=== PATIENT | male | born 1990 | race Caucasian/White ===

== ENCOUNTER 2017-02-01 13:15 | Inpatient (IN) | payer OTHER ==
[~2017-02-01] VITALS: Ht 190.5 cm; Wt 129.5 kg
[2017-02-01] MEDS ORDERED: BELLADONNA/PHENOBARBITAL TAB PO STA (14:02)
[2017-02-01] MEDS ORDERED: LIDOCAINE/MYLANTA 40 ML BTL PO STA (14:02)
[2017-02-01] MEDS ORDERED: IBUPROFEN 600 MG TAB PO ONE (14:30)
--- NOTE | 2017-02-01 15:49 | RADRPT ---
PROCEDURE: CT Abdomen and Pelvis without contrast. CLINICAL INDICATION: Abdominal pain. Nausea vomiting and fever. TECHNIQUE: CT scan of the abdomen and pelvis without contrast was performed on a multi-slice CT [facility] without intravenous contrast. Coronal and sagittal reformatted images were obtained from the axial source images. Images were reviewed on a high-resolution PACS workstation. One or more of the following does reduction techniques were used: Automated exposure control; adjustment of the mA an d/or kV according to patient size; use of the aorta of reconstruction technique. The total exam CTD I equals 23.79 mGy and the total exam DLP equals 1006 and 78.5 mGy-cm. COMPARISON: None available. FINDINGS: The lung bases are clear. Heart size is normal, and there is no evidence of pericardial thickening or effusion. The liver, spleen, and pancreas are normal given limitations of a noncontrast CT examination. The g allbladder is normal. The adrenal glands are normal. The kidneys without renal calculus or hydronephrosis. The aorta is of normal caliber. There is no retroperitoneal lymph node enlargment. There is no evidence of large or small bowel obstruction. There is moderate thickening of the cecum . There is moderate pericecal inflammatory change and multiple prominent adjacent mesentery lymph n odes. There is mild thickening of the terminal ileum which may be related to reflux ileitis. There is no other evidence of bowel wall thickening or inflammatory change. A small amount of pelvic free fluid is likely reactive. There is no focal fluid collection. The appendix is not identified, how ever there is no definitive evidence of appendicitis. A normal appendix is identified. No definiti ve cecal diverticulum is seen. No enlarged pelvic sidewall lymph nodes are seen. The bladder is within normal limits. There is a small amount of pelvic free fluid.. The inguinal regions are unremarkable. The bones are intact. There is a 3.8 cm ovoid soft tissue density nodule in the subcutaneous fat of the anterior left lower chest which is inseparable from the skin and likely represents a skin lesio n such as a sebaceous cyst. IMPRESSION: 1. Moderate to marked thickening of the cecum with moderate adjacent inflammatory changes and assoc iated prominent adjacent and mesenteric lymph nodes. There is also mild to moderate thickening and i nflammatory change adjacent to the terminal ileum. Findings likely represent terminal ileitis with reactive thickening of the cecum. The differential diagnosis includes Crohn disease. A cecal mass could also have this appearance, however would be very atypical in a 26-year-old male. Follow-up is recommended as clinically indicated. 2. Small pelvic free fluid, likely reactive. 3. 3.8 cm ovoid soft tissue density in the subcutaneous fat of the anterior left lower chest which is inseparable from the skin and may represent a sebaceous cyst. Correlation with physical exam is recommended. RPTAT: KK .Leoncio Serrato MD, MD Date Time Electronically viewed and signed by .Leoncio Serrato MD, MD on 02/01/2017 15:49 .B/
[2017-02-01] MEDS ORDERED: SOD CHLORIDE 0.9% 1,000 ML IV STA (15:57)
[2017-02-01] MEDS ORDERED: PIPER-TAZO 3.375 GM IV (PMX) 100 ML IVPB STA (15:57)
[2017-02-01 16:28] LABS: ADD SCAN DIFF NO
[2017-02-01 16:31] LABS: ABNORMAL IP MESSAGE 1; BASOPHIL # 0.1 10^3/ul (0.0-0.1); BASOPHILS % 0.5 % (0.0-2.0); EOSINOPHILS # 0.1 10^3/ul (0.0-0.5); EOSINOPHILS % 0.6 % (0.0-7.0); HEMATOCRIT 41.1 % (42.0-52.0); HEMOGLOBIN 13.1 g/dl (14.0-18.0); LYMPHOCYTES # 2.6 10^3/ul (0.8-2.9); LYMPHOCYTES % 18.4 % (15.0-51.0); MEAN CORPUSCULAR HEMOGLOBIN 25.9 pg (29.0-33.0); MEAN CORPUSCULAR HGB CONC 31.9 g/dl (32.0-37.0); MEAN CORPUSCULAR VOLUME 81.2 fl (82.0-101.0); MEAN PLATELET VOLUME 8.4 fl (7.4-10.4); MONOCYTES % 14.6 % (0.0-11.0); NEUTROPHIL # 9.1 10^3/ul (1.6-7.5); NEUTROPHILS % 65.4 % (39.0-77.0); PLATELET COUNT 666 10^3/UL (140-415); RED BLOOD COUNT 5.06 10^6/ul (4.70-6.10); RED CELL DISTRIBUTION WIDTH 14.5 % (11.5-14.5)
[2017-02-01 16:43] LABS: INR 1.1; PROTIME 14.2 Sec (12.2-14.2); PT RATIO 1.1
[2017-02-01 16:45] LABS: ALBUMIN 3.8 g/dl (3.3-4.9)
[2017-02-01 16:46] LABS: POTASSIUM 3.9 mmol/L (3.5-5.1)
[2017-02-01 16:48] LABS: BILIRUBIN,INDIRECT 0.2 mg/dl (0-1.1); BILIRUBIN,TOTAL 0.2 mg/dl (0.2-1.3); CREATININE 0.73 mg/dl (0.61-1.24)
[2017-02-01 16:49] LABS: ALBUMIN/GLOBULIN RATIO 0.84; CALCIUM 8.9 mg/dl (8.4-10.2); TOTAL PROTEIN 8.3 g/dl (6.1-8.1)
[2017-02-01] MEDS ORDERED: morphine 4 MG/ML VIAL IV STA (17:07)
[2017-02-01] MEDS ORDERED: ONDANSETRON 4 MG INJ IV STA (17:07)
--- NOTE | 2017-02-01 17:10 | ERA ---
ER Documentation Chief Complaint Date/Time DATE: 02/01/17 TIME: 17:02 Chief Complaint gen abd pain and nausea and vomiting for the past month. HPI 26-year-old man complains of 4-5 episodes of diarrhea daily for the last 1 week. Mom states she has had symptoms including abdominal pain for 1 month old over the last week it is gotten worse. Patient has had tactile fevers at home. Mom who is also at the bedside states 4 months ago he had similar symptoms which lasted for a week and resolved spontaneously, and generally speaking he has had diarrhea on a regular basis for about 10 years. He has had no recent weight loss, no recent antibiotic use, no blood per rectum or mucus, no vomiting , no chest pain or shortness of breath. He has had no previous workups. ROS All systems reviewed and are negative except as per history of present illness. Allergies Allergies: Coded Allergies: No Known Allergy (Unverified , 02/01/17) PMhx/Soc Medical and Surgical Hx: pt denies Medical Hx, pt denies Surgical Hx Smoking Status: Never smoker FmHx Family History: No diabetes Physical Exam Vitals Vital Signs Date Time Temp Pulse Resp B/P Pulse Ox O2 Delivery O2 Flow Rate FiO2 02/01/17 13:29 99.0 105 20 140/80 98 Physical Exam GENERAL: Well-developed, well-nourished, in moderate pain, febrile HEENT: Moist mucous membranes, pink conjunctiva, no cervical spine tenderness or step-off deformities, no goiter, no jaundice or icterus, extraocular movements intact without pain. No submandibular induration, and no pharyngeal erythema NEURO: Alert and oriented 3, cranial nerves II through XII intact bilaterally, pupils equal round reactive to light, no focal deficits or facial asymmetry, sensation intact distally Strength 5/5 in upper and lower extremities bilaterally CARDIAC: Tachycardic and regular, no murmurs rubs or gallops LUNGS: Clear bilaterally no wheezing crackles or stridor ABDOMEN: Voluntary guarding, diffusely tender, no rigidity or rebound SKIN: Warm and dry to touch, no abrasions, contusions, or hematomas, no lacerations, no ecchymosis, no target lesions, and without ulcers EXTREMITIES: No clubbing cyanosis or edema, calves are bilaterally symmetrical, no Homans sign, no popliteal cord sign. Distal pulses equal and bilateral PSYCH: Normal affect without agitation or irritability Result Diagram: 02/01/17 1618 02/01/17 1618 Results 24 hrs Laboratory Tests Test 02/01/17 16:18 White Blood Count 14.010^3/ul Red Blood Count 5.0610^6/ul Hemoglobin 13.1g/dl Hematocrit 41.1% Mean Corpuscular Volume 81.2fl Mean Corpuscular Hemoglobin 25.9pg Mean Corpuscular Hemoglobin Concent 31.9g/dl Red Cell Distribution Width 14.5% Platelet Count 51595^3/UL Mean Platelet Volume 8.4fl Neutrophils % 65.4% Lymphocytes % 18.4% Monocytes % 14.6% Eosinophils % 0.6% Basophils % 0.5% Nucleated Red Blood Cells % 0.0/100WBC Neutrophils # 9.110^3/ul Lymphocytes # 2.610^3/ul Monocytes # 2.010^3/ul Eosinophils # 0.110^3/ul Basophils # 0.110^3/ul Nucleated Red Blood Cells # 0.010^3/ul Prothrombin Time 14.2Sec Prothrombin Time Ratio 1.1 INR International Normalized Ratio 1.10 Sodium Level 136mmol/L Potassium Level 3.9mmol/L Chloride Level 102mmol/L Carbon Dioxide Level 24mmol/L Anion Gap 14 Blood Urea Nitrogen 10mg/dl Creatinine 0.73mg/dl Glucose Level 97mg/dl Calcium Level 8.9mg/dl Total Bilirubin 0.2mg/dl Direct Bilirubin 0.00mg/dl Indirect Bilirubin 0.2mg/dl Aspartate Amino Transf (AST/SGOT) 17IU/L Alanine Aminotransferase (ALT/SGPT) 20IU/L Alkaline Phosphatase 90IU/L Total Protein 8.3g/dl Albumin 3.8g/dl Globulin 4.50g/dl Albumin/Globulin Ratio 0.84 Lipase 41U/L Current Medications Medications (Trade) Dose Ordered Sig/Marcello Route PRN Reason Start Time Stop Time Status Last Admin Dose Admin Miscellaneous Medication (Gi Cocktail (2)) 40 ml ONCE STAT PO 02/01/17 14:02 02/01/17 14:10 DC 02/01/17 14:13 Belladonna/ Phenobarbital () 2 tab ONCE STAT PO 02/01/17 14:02 02/01/17 14:10 DC 02/01/17 14:13 Ibuprofen 600 mg 600 mg ONCE ONCE PO 02/01/17 14:30 02/01/17 14:31 DC 02/01/17 14:13 Sodium Chloride 1,000 ml @ 1,000 mls/hr Q1H STAT IV 02/01/17 15:57 02/01/17 16:56 DC 02/01/17 16:17 Piperacillin Sod/ Tazobactam Sod (Zosyn 3.375gm/ 100 ml (Pmx)) 100 ml @ 200 mls/hr ONCE STAT IVPB 02/01/17 15:57 02/01/17 16:26 DC 02/01/17 16:17 Procedures/MDM IV line was established patient was placed on front desk monitor rhythm strip revealed a sinus tachycardia at 110 bpm with upright P and T waves. Patient was febrile. I administered 1 L of normal saline intravenously, ibuprofen 600 mg p.o., and a GI cocktail 50 cc p.o. with good effect. CT scan of abdomen and pelvis revealed thickening of the cecum and inflammatory changes concerning for inflammatory bowel disease. Please refer to radiologist dictation for full report. I administered Zosyn 3.375 g IV, morphine 4 mg IV, Zofran 4 mg IV with good effect. CBC reveals a leukocytosis of 14, electrolytes unremarkable, liver function tests are normal, coagulation profile was normal. I obtain surgical consultation given the patient's recent symptoms and CT scan findings, Dr. Jolly agreed to consult the patient Patient will be admitted to [facility] for continued medical management. Departure Diagnosis: Primary Impression: Inflammatory bowel disease Additional Impression: Infectious colitis Condition: EMIL Fish MD Feb 01, 2017 17:10
[2017-02-01] MEDS ORDERED: ALBU18HF INHALATION (19:04)
[2017-02-01 20:08] VITALS: TEMP 97.7
--- NOTE | 2017-02-01 20:37 | CONS ---
Date/Time of Note Date/Time of Note DATE: 02/01/17 TIME: 20:31 Assessment/Plan Assessment/Plan Chief Complaint/Hosp Course 26-year-old male with abdominal pain and diarrhea for the past month * Differential diagnosis includes: Terminal ileitis, inflammatory bowel disease , cecal diverticulitis, etc. Chronic perforated appendicitis is less likely. * Recommend broad-spectrum intravenous antibiotics, IV fluid hydration, pain control as needed * Will send off inflammatory bowel panel * Recommend GI consult Further recommendations will be made based on patient's clinical course Problems: Consultation Date/Type/Reason Admit Date/Time Date of Consultation: Feb 01, 2017 Type of Consultation: GENERAL SURGERY Reason for Consultation Abdominal pain Hx of Present Illness The patient is a 26-year-old male with no significant reported past medical history of present the emergency room complaining of abdominal pain. He describes the pain as being located in the left upper quadrant and periumbilical region. It has been associated with diarrhea. He denies any blood in the stool. He states that the pain is been going on over the past month. There is been no nausea or vomiting. There has been no weight loss. Apparently the patient had similar symptoms proximally 4 months ago which resolved on its own after a week. A 14 point review systems was conducted and was negative except for that which is mentioned in history of present illness Past Medical History Medical History: no pertinent history Past Surgical History Past Surgical Hx: no surgical history Family History Significant Family History: no pertinent family hx Social History Smoking Status: Never smoker Exam/Review of Systems Vital Signs Vitals Vital Signs Date Time Temp Pulse Resp B/P Pulse Ox O2 Delivery O2 Flow Rate FiO2 02/01/17 20:08 97.7 79 20 105/67 100 Room Air Exam GENERAL: Awake, alert, oriented 3. No acute distress. SKIN: No jaundice. HEENT: PERRLA, EOMI, No Scleral Icterus NECK: Supple without JVD CARDIOVASCULAR: S1S2, regular rate and rhythm. No murmurs appreciated. RESPIRATORY: Clear to auscultation bilaterally. ABDOMEN: Soft, bowel sounds present but slightly diminished, nondistended, there is mild left quadrant tenderness to palpation without rebound or guarding. There is no right lower quadrant tenderness to palpation. There is no evidence of diffuse peritonitis. EXTREMITIES: Free range of motion 4. No cyanosis, edema, or clubbing. NEUROLOGIC: Cranial nerves II-XII are intact. Sensation is intact grossly. Results Result Diagram: 02/01/17 1618 02/01/17 1618 Results 24 hrs Laboratory Tests Test 02/01/17 16:18 White Blood Count 14.0 H Red Blood Count 5.06 Hemoglobin 13.1 L Hematocrit 41.1 L Mean Corpuscular Volume 81.2 L Mean Corpuscular Hemoglobin 25.9 L Mean Corpuscular Hemoglobin Concent 31.9 L Red Cell Distribution Width 14.5 Platelet Count 666 H Mean Platelet Volume 8.4 Neutrophils % 65.4 Lymphocytes % 18.4 Monocytes % 14.6 H Eosinophils % 0.6 Basophils % 0.5 Nucleated Red Blood Cells % 0.0 Neutrophils # 9.1 H Lymphocytes # 2.6 Monocytes # 2.0 H Eosinophils # 0.1 Basophils # 0.1 Nucleated Red Blood Cells # 0.0 Prothrombin Time 14.2 Prothrombin Time Ratio 1.1 INR International Normalized Ratio 1.10 Sodium Level 136 Potassium Level 3.9 Chloride Level 102 Carbon Dioxide Level 24 Anion Gap 14 Blood Urea Nitrogen 10 Creatinine 0.73 Glucose Level 97 Calcium Level 8.9 Total Bilirubin 0.2 Direct Bilirubin 0.00 Indirect Bilirubin 0.2 Aspartate Amino Transf (AST/SGOT) 17 Alanine Aminotransferase (ALT/SGPT) 20 Alkaline Phosphatase 90 Total Protein 8.3 H Albumin 3.8 Globulin 4.50 H Albumin/Globulin Ratio 0.84 Lipase 41 Procedures Procedures PROCEDURE: CT Abdomen and Pelvis without contrast. CLINICAL INDICATION: Abdominal pain. Nausea vomiting and fever. TECHNIQUE: CT scan of the abdomen and pelvis without contrast was performed on a multi-slice CT scanner without intravenous contrast. Coronal and sagittal reformatted images were obtained from the axial source images. Images were reviewed on a high-resolution PACS workstation. One or more of the following does reduction techniques were used: Automated exposure control; adjustment of the mA and/or kV according to patient size; use of the aorta of reconstruction technique. The total exam CTDI equals 23.79 mGy and the total exam DLP equals 1006 and 78.5 mGy-cm. COMPARISON: None available. FINDINGS: The lung bases are clear. Heart size is normal, and there is no evidence of pericardial thickening or effusion. The liver, spleen, and pancreas are normal given limitations of a noncontrast CT examination. The gallbladder is normal. The adrenal glands are normal. The kidneys without renal calculus or hydronephrosis. The aorta is of normal caliber. There is no retroperitoneal lymph node enlargment. There is no evidence of large or small bowel obstruction. There is moderate thickening of the cecum. There is moderate pericecal inflammatory change and multiple prominent adjacent mesentery lymph nodes. There is mild thickening of the terminal ileum which may be related to reflux ileitis. There is no other evidence of bowel wall thickening or inflammatory change. A small amount of pelvic free fluid is likely reactive. There is no focal fluid collection. The appendix is not identified, however there is no definitive evidence of appendicitis. A normal appendix is identified. No definitive cecal diverticulum is seen. No enlarged pelvic sidewall lymph nodes are seen. The bladder is within normal limits. There is a small amount of pelvic free fluid.. The inguinal regions are unremarkable. The bones are intact. There is a 3.8 cm ovoid soft tissue density nodule in the subcutaneous fat of the anterior left lower chest which is inseparable from the skin and likely represents a skin lesion such as a sebaceous cyst. IMPRESSION: 1. Moderate to marked thickening of the cecum with moderate adjacent inflammatory changes and associated prominent adjacent and mesenteric lymph nodes. There is also mild to moderate thickening and inflammatory change adjacent to the terminal ileum. Findings likely represent terminal ileitis with reactive thickening of the cecum. The differential diagnosis includes Crohn disease. A cecal mass could also have this appearance, however would be very atypical in a 26-year-old male. Follow-up is recommended as clinically indicated. 2. Small pelvic free fluid, likely reactive. 3. 3.8 cm ovoid soft tissue density in the subcutaneous fat of the anterior left lower chest which is inseparable from the skin and may represent a sebaceous cyst. Correlation with physical exam is recommended. RPTAT: KK .Leoncio Serrato MD, MD Date Time Electronically viewed and signed by .Leoncio Serrato MD, MD on 2016 15:49 .B/ CC: EMIL PACHECO MD,JOSHUA Meza MD Feb 01, 2017 20:37
[2017-02-01 21:00] VITALS: Ht 190.5 cm; Wt 129.5 kg
[2017-02-01 21:01] VITALS: BP 127/64; RESP 16
[2017-02-01] MEDS ORDERED: ZOLPIDEM 5 MG TAB PO PRN (22:30)
[2017-02-01] MEDS: metroNIDAZOLE 500 MG TAB PO SCH (22:38)
[2017-02-01] MEDS ORDERED: LEVOFLOXACIN 500 MG TAB PO SCH (23:00)
--- NOTE | 2017-02-02 04:32 | HP ---
DATE OF ADMISSION: 02/01/2017 CHIEF COMPLAINT: "I have had diarrhea and abdominal pain for about 2 weeks." HISTORY OF PRESENT ILLNESS: The patient is a very pleasant, healthy, 26-year-old gentleman with no past medical history and taking no medications who was in his usual state of health until [facility] 2 weeks ago. He presented with intermittent diarrhea and abdominal pain. The watery brown stoo ls were occurring approximately 4 times a day. He went to a different emergency department and said "they did not do anything for me." He presented to [facility] ER today with the aforement ioned symptoms, and his workup revealed a white count of 14,000, and his CT scan revealed moderate t o marked thickening of the cecum with moderate adjacent inflammatory changes and associated prominen t adjacent and mesenteric lymph nodes. There is also mild to moderate thickening and inflammatory c hange adjacent to the terminal ileum. These findings represent terminal ileitis with reactive thick ening of the cecum. The patient denies any sick contacts, fever, nausea, vomiting. This is the fir st time he has had this illness and symptoms. He has not had diarrhea like this or abdominal pain a t all in the past. He denies eating any different foods or undercooked foods in the last few weeks as well. The patient was started on Zosyn and IV fluids in the emergency department and admitted to the medic al floor for further evaluation and treatment. ALLERGIES: NO KNOWN DRUG ALLERGIES. MEDICATIONS: Albuterol inhaler p.r.n. PAST SURGICAL HISTORY: None. SOCIAL HISTORY: The patient denies any tobacco or alcohol use. He lives in [place] with family members. 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 FAMILY HISTORY: The patient's mother has cancer, but he does not know what type. She is alive, how ever. His father has diabetes. REVIEW OF SYSTEMS: Essentially negative except as stated in history of present illness. PHYSICAL EXAMINATION: VITAL SIGNS: Temperature is 98.1, blood pressure 127/64, pulse rate of 86, respiratory rate 16, oxy gen saturation 98% on room air. HEENT: Normocephalic, atraumatic. His extraocular movements are intact. Pupils are equal, round, react to light and accommodations. Oropharynx is clear. NECK: No JVD was noted. No thyromegaly was noted. CARDIOVASCULAR: Regular rate and rhythm without appreciable murmurs, rubs, or gallops. LUNGS: Lungs were clear to auscultation bilaterally without rales, rhonchi, or crackles. ABDOMEN: Soft, nontender, nondistended with normoactive bowel sounds present in all 4 quadrants. EXTREMITIES: No clubbing, cyanosis, or edema. LABORATORIES AND TESTS: His white count is 14, hemoglobin 13.1, hematocrit 41.1, platelet count of 666,000 with 14.6% monocytes. His PT is 14.2, INR of 1.1. Sodium 136, potassium 3.9, chloride 102, bicarbonate 24, BUN 10, creatinine 0.73, glucose 97, calcium 8.9, total bilirubin 0.2, AST 17, ALT 20, alkaline phosphatase 90, total protein 8.3, albumin 3.8, globulin elevated at 4.5, lipase 41. IMPRESSION AND PLAN: The patient is a pleasant 26-year-old male who is basically healthy. [facility] with abdominal pain and intermittent diarrhea for approximately 2 weeks. He had 4 diarrheal epi sodes a day. They are watery and brown. No blood was noted. A CT scan of the abdomen was suspicio us for terminal ileitis. The differential diagnosis does include Crohn's disease. Infectious etiol ogy cannot be ruled out as well. The patient was started on Zosyn and continued on Levaquin and Fla gyl. Dr. Garza has been consulted, and he will evaluate the patient tomorrow. Additional laborato ry testing was ordered which includes an ANCA panel, MPO, and PR3 antibody as well as a C-reactive p rotein. The patient will also get liver profile, CBC, and other general tests. At this point, he i s doing well and not having any abdominal pain or diarrhea. For this reason, he will be monitored o vernight, and we will await Dr. Garza's recommendations. As stated above, he will continue on Leva ailyn and Flagyl and further treatment recommendations to be made based on the patient's progress. Dictated By: NANDINI JOHNSON/DANNI Conf#: [id number] DID#: [id number]
[2017-02-02 05:38] LABS: ADD SCAN DIFF NO
[2017-02-02 05:44] LABS: BASOPHIL # 0.1 10^3/ul (0.0-0.1); BASOPHILS % 0.4 % (0.0-2.0); EOSINOPHILS # 0.1 10^3/ul (0.0-0.5); EOSINOPHILS % 0.9 % (0.0-7.0); HEMATOCRIT 38.6 % (42.0-52.0); HEMOGLOBIN 11.9 g/dl (14.0-18.0); LYMPHOCYTES # 2.1 10^3/ul (0.8-2.9); LYMPHOCYTES % 17.1 % (15.0-51.0); MEAN CORPUSCULAR HEMOGLOBIN 25.6 pg (29.0-33.0); MEAN CORPUSCULAR HGB CONC 30.8 g/dl (32.0-37.0); MEAN CORPUSCULAR VOLUME 83.2 fl (82.0-101.0); MEAN PLATELET VOLUME 8.5 fl (7.4-10.4); MONOCYTE # 1.1 10^3/ul (0.3-0.9); MONOCYTES % 8.9 % (0.0-11.0); NEUTROPHIL # 8.8 10^3/ul (1.6-7.5); NEUTROPHILS % 72.2 % (39.0-77.0); PLATELET COUNT 584 10^3/UL (140-415); RED BLOOD COUNT 4.64 10^6/ul (4.70-6.10); RED CELL DISTRIBUTION WIDTH 14.7 % (11.5-14.5); WHITE BLOOD COUNT 12.2 10^3/ul (4.8-10.8)
[2017-02-02 05:55] LABS: POTASSIUM 4.3 mmol/L (3.5-5.1)
[2017-02-02 05:58] LABS: CREATININE 0.61 mg/dl (0.61-1.24)
[2017-02-02 05:59] LABS: CALCIUM 8.7 mg/dl (8.4-10.2); CHOL/HDL RATIO 2.8 RATIO
[2017-02-02] MEDS: metroNIDAZOLE 500 MG TAB PO SCH ×3 (06:08→22:47)
[2017-02-02] MEDS: PANTOPRAZOLE (EC) 40 MG TAB PO SCH (06:09)
[2017-02-02 07:00] VITALS: BP 131/60; RESP 18
[2017-02-02 09:04] LABS: ALBUMIN 3.3 g/dl (3.3-4.9)
[2017-02-02 09:07] LABS: BILIRUBIN,INDIRECT 0.3 mg/dl (0-1.1); BILIRUBIN,TOTAL 0.3 mg/dl (0.2-1.3); TOTAL PROTEIN 7.4 g/dl (6.1-8.1)
[2017-02-02] MEDS ORDERED: morphine 2 MG INJ IV PRN (10:00)
[2017-02-02] MEDS ORDERED: ONDANSETRON 4 MG INJ IV PRN (10:00)
[2017-02-02] MEDS ORDERED: ACETAMINOPHEN 325 MG TAB PO PRN (10:00)
[2017-02-02] MEDS ORDERED: NACL 0.9% 3 ML SYG IV SCH (10:00)
--- NOTE | 2017-02-02 10:03 | PN ---
Date/Time of Note Date/Time of Note DATE: 02/02/17 TIME: 09:48 Assessment/Plan VTE Prophylaxis VTE Prophylaxis Intervention: SCD's Lines/Catheters IV Catheter Type [facility]from [facility]): Saline Lock Assessment/Plan Assessment/Plan 26-year-old male with: 1. Abdominal pain and intermittent diarrhea for approximately [address] scan of the abdomen suspicious for terminal ileitis. CRP up, ? Crohn's disease, r/o infectious etiology. Stool studies pending. On Clears D/c Zosyn and agree with Levaquin and Flagyl. Dr. Garza has been consulted, ANCA panel, MPO, and PR3 antibody pending . Prophylaxis: Protonix for GI ppx and SCDs for DVT ppx Disposition: GI eval today, Abx, stool studies and IVF. Subjective 24 Hr Interval Summary Free Text/Dictation Patient remains stable No complaints today and still with diarrhea Stool studies pending, GI consult pending for Magdalena this weekend On Levaquin and Flagyl Exam/Review of Systems Vital Signs Vitals Vital Signs Date Time Temp Pulse Resp B/P Pulse Ox O2 Delivery O2 Flow Rate FiO2 02/02/17 07:00 98.0 98 18 131/60 98 02/01/17 20:08 Room Air Exam Constitutional: alert, obese, oriented, well developed Respiratory: clear to auscultation, normal air movement Cardiovascular: nl pulses, regular rate and rhythm Gastrointestinal: non-tender, soft Musculoskeletal: nl extremities to inspection Neurological: BOBBIN FIXER II-XII intact, nl mental status, nl speech, nl strength Results Result Diagram: 02/02/17 0526 02/02/17 0526 Results 24 hrs Laboratory Tests Test 02/01/17 16:18 02/02/17 05:26 02/02/17 07:30 White Blood Count 14.0 H 12.2 H Red Blood Count 5.06 4.64 L Hemoglobin 13.1 L 11.9 L Hematocrit 41.1 L 38.6 L Mean Corpuscular Volume 81.2 L 83.2 Mean Corpuscular Hemoglobin 25.9 L 25.6 L Mean Corpuscular Hemoglobin Concent 31.9 L 30.8 L Red Cell Distribution Width 14.5 14.7 H Platelet Count 666 H 584 H Mean Platelet Volume 8.4 8.5 Neutrophils % 65.4 72.2 Lymphocytes % 18.4 17.1 Monocytes % 14.6 H 8.9 Eosinophils % 0.6 0.9 Basophils % 0.5 0.4 Nucleated Red Blood Cells % 0.0 0.0 Neutrophils # 9.1 H 8.8 H Lymphocytes # 2.6 2.1 Monocytes # 2.0 H 1.1 H Eosinophils # 0.1 0.1 Basophils # 0.1 0.1 Nucleated Red Blood Cells # 0.0 0.0 Prothrombin Time 14.2 Prothrombin Time Ratio 1.1 INR International Normalized Ratio 1.10 Sodium Level 136 139 Potassium Level 3.9 4.3 Chloride Level 102 105 Carbon Dioxide Level 24 27 Anion Gap 14 11 Blood Urea Nitrogen 10 8 Creatinine 0.73 0.61 Glucose Level 97 102 Calcium Level 8.9 8.7 Total Bilirubin 0.2 0.3 Direct Bilirubin 0.00 0.00 Indirect Bilirubin 0.2 0.3 Aspartate Amino Transf (AST/SGOT) 17 23 Alanine Aminotransferase (ALT/SGPT) 20 21 Alkaline Phosphatase 90 74 Total Protein 8.3 H 7.4 Albumin 3.8 3.3 Globulin 4.50 H Albumin/Globulin Ratio 0.84 Lipase 41 Triglycerides Level 87 Cholesterol Level 102 LDL Cholesterol, Calculated 49 HDL Cholesterol 36 Cholesterol/HDL Ratio 2.8 C-Reactive Protein 12.5 H Medications Medications Current Medications Levofloxacin (Levaquin) 500 mg Q24H PO Last administered on 02/01/17 22:38; Admin Dose 500 MG; Start 02/01/17 at 23:00 Metronidazole (Flagyl) 500 mg Q8 PO Last administered on 02/02/17 06:08; Admin Dose 500 MG; Start 02/01/17 at 22:30 Pantoprazole (Protonix Tab) 40 mg DAILY@06 PO Last administered on 02/02/17 06 :09; Admin Dose 40 MG; Start 02/02/17 at 06:00 AARON VEE Feb 02, 2017 09:58
--- NOTE | 2017-02-02 10:52 | CONS ---
Date/Time of Note Date/Time of Note DATE: 02/02/17 TIME: 10:51 Assessment/Plan Assessment/Plan Additional Assessment/Plan Chronic diarrhea Evaluate infectious process vs IBD Review IBD serology and hepatitis A Monitor H&H every 8 hours, transfuse 2 units for hemoglobin less than 7.5 C difficle stool test Colonoscopy i tomorrow, pt advised of R/B/A to procedure and provide informed consent to proceed Bowel Prep CT abdomen: Moderate to marked thickening of the cecum with moderate adjacent inflammatory changes and associated prominent adjacent and mesenteric lymph nodes. There is also mild to moderate thickening and inflammatory change adjacent to the terminal ileum. Findings likely represent terminal ileitis with reactive thickening of the cecum. The differential diagnosis includes Crohn disease. A cecal mass could also have this appearance, however would be very atypical in a 26-year-old male. Follow-up is recommended as clinically indicated. Asthma Management per Primary Obesity Management per Primary Further recommendations depend on clinical course Patient seen in collaboration with Dr. Garza Consultation Date/Type/Reason Admit Date/Time Type of Consultation: Gastroenterology Reason for Consultation Chronic diarrhea Hx of Present Illness Mr.Julio Phillips is a 26-year-old male that presented to the emergency room yesterday secondary to complaints of chronic diarrhea for the last 2 weeks and left upper quadrant abdominal pain. Patient states after 4 episodes of nonbloody loose stools for the last 2 weeks. Patient states left abdominal pain comes and goes and is sharp and lasts for up to 2 minutes. Patient denies alleviating or aggravating factors. Patient denies fever, chills, nausea, vomiting, sick contacts, travel outside the [place], new medications. Patient denies family history of inflammatory bowel disease or colon cancer. Patient has PMH of obesity and well-controlled asthma. At bedside, risks/benefits/ alternatives of procedure were explained to patient and patient provides informed consent to proceed. Negative unless noted in HPI Past Medical History Medical History: no pertinent history Past Surgical History Past Surgical Hx: no surgical history Social History Smoking Status: Never smoker Exam/Review of Systems Vital Signs Vitals Vital Signs Date Time Temp Pulse Resp B/P Pulse Ox O2 Delivery O2 Flow Rate FiO2 02/02/17 07:00 98.0 98 18 131/60 98 02/01/17 20:08 Room Air Exam Constitutional: alert, oriented, well developed Psych: nl mood/affect Head: normocephalic Eyes: EOMI, nl conjunctiva, nl lids ENMT: nl external ears & nose, nl lips & teeth, nl nasal mucosa & septum Respiratory: clear to auscultation, normal air movement Cardiovascular: regular rate and rhythm Gastrointestinal: soft, left upper quadrant tenderness Musculoskeletal: nl extremities to inspection Neurological: BRUSH OR BROOM CUTTER II-XII intact Results Result Diagram: 02/02/17 0526 02/02/17 0526 Results 24 hrs Laboratory Tests Test 02/01/17 16:18 02/02/17 05:26 02/02/17 07:30 White Blood Count 14.0 H 12.2 H Red Blood Count 5.06 4.64 L Hemoglobin 13.1 L 11.9 L Hematocrit 41.1 L 38.6 L Mean Corpuscular Volume 81.2 L 83.2 Mean Corpuscular Hemoglobin 25.9 L 25.6 L Mean Corpuscular Hemoglobin Concent 31.9 L 30.8 L Red Cell Distribution Width 14.5 14.7 H Platelet Count 666 H 584 H Mean Platelet Volume 8.4 8.5 Neutrophils % 65.4 72.2 Lymphocytes % 18.4 17.1 Monocytes % 14.6 H 8.9 Eosinophils % 0.6 0.9 Basophils % 0.5 0.4 Nucleated Red Blood Cells % 0.0 0.0 Neutrophils # 9.1 H 8.8 H Lymphocytes # 2.6 2.1 Monocytes # 2.0 H 1.1 H Eosinophils # 0.1 0.1 Basophils # 0.1 0.1 Nucleated Red Blood Cells # 0.0 0.0 Prothrombin Time 14.2 Prothrombin Time Ratio 1.1 INR International Normalized Ratio 1.10 Sodium Level 136 139 Potassium Level 3.9 4.3 Chloride Level 102 105 Carbon Dioxide Level 24 27 Anion Gap 14 11 Blood Urea Nitrogen 10 8 Creatinine 0.73 0.61 Glucose Level 97 102 Calcium Level 8.9 8.7 Total Bilirubin 0.2 0.3 Direct Bilirubin 0.00 0.00 Indirect Bilirubin 0.2 0.3 Aspartate Amino Transf (AST/SGOT) 17 23 Alanine Aminotransferase (ALT/SGPT) 20 21 Alkaline Phosphatase 90 74 Total Protein 8.3 H 7.4 Albumin 3.8 3.3 Globulin 4.50 H Albumin/Globulin Ratio 0.84 Lipase 41 Triglycerides Level 87 Cholesterol Level 102 LDL Cholesterol, Calculated 49 HDL Cholesterol 36 Cholesterol/HDL Ratio 2.8 C-Reactive Protein 12.5 H Medications Medications Current Medications Metronidazole (Flagyl) 500 mg Q8 PO Last administered on 02/02/17 06:08; Admin Dose 500 MG; Start 02/01/17 at 22:30 Pantoprazole 40 mg 40 mg DAILY@06 PO Last administered on 02/02/17 06:09; Admin Dose 40 MG; Start 02/02/17 at 06:00 Levofloxacin/ Dextrose 100 ml @ 100 mls/hr Q24H IVPB ; Start 02/02/17 at 11:00 Sodium Chloride (NS) 1,000 ml @ 100 mls/hr Q10H IV ; Start 02/02/17 at 10:00 Ondansetron HCl (Zofran Inj) 4 mg Q6H PRN IV NAUSEA AND/OR VOMITING; Start at 10:00 Acetaminophen (Tylenol Tab) 650 mg Q6H PRN PO PAIN LEVEL 1-3 OR FEVER; Start at 10:00 Morphine Sulfate (morphine) 2 mg Q4H PRN IV PAIN; Start 02/02/17 at 10:00 JAY LISA Feb 02, 2017 10:52
[2017-02-02] MEDS: LEVOFLOXACIN 500MG/D5W (PMX) 100 ML IVPB SCH (11:05)
[2017-02-02] MEDS: SOD CHLORIDE 0.9% 1,000 ML IV SCH ×2 (11:08→22:48)
[2017-02-02] MEDS ORDERED: BISACODYL (EC) 5 MG TAB PO ONE ×2 (14:00→18:00)
[2017-02-02] MEDS ORDERED: MAGNESIUM CITRATE 300 ML BTL PO ONE (15:00)
[2017-02-02] MEDS ORDERED: POLYETHYLENE GLYCOL 3350 119 GM POWDER PO ONE ×2 (16:00→18:00)
--- NOTE | 2017-02-02 19:37 | PN ---
Date/Time of Note Date/Time of Note DATE: 02/02/17 TIME: 19:34 Assessment/Plan Lines/Catheters [facility] (from [facility]): Saline Lock Assessment/Plan Assessment/Plan 26-year-old male with abdominal pain and diarrhea for the past month * Differential diagnosis includes: Terminal ileitis, inflammatory bowel disease , cecal diverticulitis, etc. Chronic perforated appendicitis is less likely. * Continue broad-spectrum intravenous antibiotics, IV fluid hydration, pain control as needed * Inflammatory bowel panel pending * Plan is for colonoscopy in AM by GI * No acute surgical issues at this time Subjective 24 Hr Interval Summary Denies abdominal pain. Undergoing bowel prep for colonoscopy. Afebrile. Exam/Review of Systems Vital Signs Vitals Vital Signs Date Time Temp Pulse Resp B/P Pulse Ox O2 Delivery O2 Flow Rate FiO2 02/02/17 07:00 98.0 98 18 131/60 98 02/01/17 20:08 Room Air Exam Free Text/Dictation GENERAL: Awake, alert, oriented 3. No acute distress. CARDIOVASCULAR: S1S2, regular rate and rhythm. No murmurs appreciated. RESPIRATORY: Clear to auscultation bilaterally. ABDOMEN: Soft, bowel sounds present, nondistended, there is minimal left upper quadrant tenderness to deep palpation without rebound or guarding. There is no right lower quadrant tenderness to palpation. There is no evidence of diffuse peritonitis. EXTREMITIES: Free range of motion 4. No cyanosis, edema, or clubbing. Results Result Diagram: 02/02/17 0526 02/02/17 0526 JOSHUA GOULD MD Feb 02, 2017 19:37
[2017-02-02 20:16] VITALS: BP 135/74; RESP 18
[2017-02-03] MEDS: metroNIDAZOLE 500 MG TAB PO SCH ×4 (05:31→21:36)
[2017-02-03] MEDS: PANTOPRAZOLE (EC) 40 MG TAB PO SCH ×2 (05:31→06:33)
[2017-02-03] MEDS: SOD CHLORIDE 0.9% 1,000 ML IV SCH ×2 (06:00→11:30)
[2017-02-03 06:34] LABS: ADD SCAN DIFF NO
[2017-02-03 06:52] LABS: BASOPHIL # 0.1 10^3/ul (0.0-0.1); EOSINOPHILS # 0.1 10^3/ul (0.0-0.5); EOSINOPHILS % 1.8 % (0.0-7.0); HEMATOCRIT 36.5 % (42.0-52.0); HEMOGLOBIN 11.3 g/dl (14.0-18.0); LYMPHOCYTES % 27.7 % (15.0-51.0); MEAN CORPUSCULAR HEMOGLOBIN 25.7 pg (29.0-33.0); MEAN PLATELET VOLUME 8.8 fl (7.4-10.4); MONOCYTE # 0.8 10^3/ul (0.3-0.9); MONOCYTES % 10.7 % (0.0-11.0); NEUTROPHIL # 4.1 10^3/ul (1.6-7.5); NEUTROPHILS % 58.4 % (39.0-77.0); PLATELET COUNT 567 10^3/UL (140-415); RED CELL DISTRIBUTION WIDTH 14.6 % (11.5-14.5); WHITE BLOOD COUNT 7.1 10^3/ul (4.8-10.8)
[2017-02-03 07:11] LABS: INR 1.06; PROTIME 13.8 Sec (12.2-14.2); PT RATIO 1.1
[2017-02-03 07:12] LABS: PARTIAL THROMBOPLASTIN TIME 33.8 Sec (25.0-35.0)
[2017-02-03 07:27] LABS: ALBUMIN 3.3 g/dl (3.3-4.9)
[2017-02-03 07:28] VITALS: BP 135/78; RESP 24
[2017-02-03 07:30] LABS: BILIRUBIN,INDIRECT 0.3 mg/dl (0-1.1); BILIRUBIN,TOTAL 0.3 mg/dl (0.2-1.3); CREATININE 0.63 mg/dl (0.61-1.24)
[2017-02-03 07:31] LABS: ALBUMIN/GLOBULIN RATIO 0.84; CALCIUM 8.7 mg/dl (8.4-10.2); MAGNESIUM 2.4 mg/dl (1.7-2.5); PHOSPHORUS 4.2 mg/dl (2.5-4.9); TOTAL PROTEIN 7.2 g/dl (6.1-8.1)
--- NOTE | 2017-02-03 10:14 | PN ---
Date/Time of Note Date/Time of Note DATE: 02/03/17 TIME: 10:04 Assessment/Plan VTE Prophylaxis VTE Prophylaxis Intervention: SCD's Lines/Catheters IV Catheter Type (from [facility], [place]): Peripheral IV Assessment/Plan Assessment/Plan 26-year-old male with: 1. Abdominal pain and intermittent diarrhea for approximately 2 weeks. S/p bowel prep and awaiting Colonoscopy. Hep A positive CT scan of the abdomen suspicious for terminal ileitis. CRP up, ? Crohn's disease, r/o infectious etiology. C diff negative. Other Stool studies pending. Colonoscopy pending. Continue Levaquin and Flagyl. Dr. Garza following ANCA panel, MPO, and PR3 antibody pending . Prophylaxis: Protonix for GI ppx and SCDs for DVT ppx Disposition: Colonoscopy pending today, continue current Abx and IVF. Subjective 24 Hr Interval Summary Free Text/Dictation Hep A positive Otherwise labs OK Colonoscopy pending today Afebrile, VSS Exam/Review of Systems Vital Signs Vitals Vital Signs Date Time Temp Pulse Resp B/P Pulse Ox O2 Delivery O2 Flow Rate FiO2 02/03/17 07:28 98.0 74 24 135/78 99 02/01/17 20:08 Room Air Intake and Output 02/02/17 02/02/17 02/03/17 15:00 23:00 07:00 Intake Total 1000 ml 600 ml Balance 1000 ml 600 ml Exam Constitutional: alert, oriented, well developed Respiratory: clear to auscultation, normal air movement Cardiovascular: nl pulses, regular rate and rhythm Gastrointestinal: soft, tender (mild TTP diffuse ) Musculoskeletal: nl extremities to inspection Extremities: normal pulses, other (no edema, clubbing or cyanosis ) Neurological: INDUSTRIAL TRAINER II-XII intact, nl mental status, nl speech, nl strength Results Result Diagram: 02/03/1730 02/03/17 0530 Results 24 hrs Laboratory Tests Test 02/02/17 14:00 02/03/17 05:30 Hepatitis A Antibody Total POSITIVE H White Blood Count 7.1 # Red Blood Count 4.40 L Hemoglobin 11.3 L Hematocrit 36.5 L Mean Corpuscular Volume 83.0 Mean Corpuscular Hemoglobin 25.7 L Mean Corpuscular Hemoglobin Concent 31.0 L Red Cell Distribution Width 14.6 H Platelet Count 567 H Mean Platelet Volume 8.8 Neutrophils % 58.4 Lymphocytes % 27.7 Monocytes % 10.7 Eosinophils % 1.8 Basophils % 1.0 Nucleated Red Blood Cells % 0.0 Neutrophils # 4.1 Lymphocytes # 2.0 Monocytes # 0.8 Eosinophils # 0.1 Basophils # 0.1 Nucleated Red Blood Cells # 0.0 Prothrombin Time 13.8 Prothrombin Time Ratio 1.1 INR International Normalized Ratio 1.06 Activated Partial Thromboplast Time 33.8 Sodium Level 138 Potassium Level 4.0 Chloride Level 109 Carbon Dioxide Level 21 Anion Gap 12 Blood Urea Nitrogen 4 L Creatinine 0.63 Glucose Level 90 Calcium Level 8.7 Phosphorus Level 4.2 Magnesium Level 2.4 Total Bilirubin 0.3 Direct Bilirubin 0.00 Indirect Bilirubin 0.3 Aspartate Amino Transf (AST/SGOT) 25 Alanine Aminotransferase (ALT/SGPT) 19 Alkaline Phosphatase 72 Total Protein 7.2 Albumin 3.3 Globulin 3.90 H Albumin/Globulin Ratio 0.84 Medications Medications Current Medications Metronidazole (Flagyl) 500 mg Q8 PO Last administered on 02/03/17 06:49; Admin Dose 500 MG; Start 02/01/17 at 22:30 Pantoprazole 40 mg 40 mg DAILY@06 PO Last administered on 02/03/17 06:33; Admin Dose 40 MG; Start 02/02/17 at 06:00 Levofloxacin/ Dextrose 100 ml @ 100 mls/hr Q24H IVPB Last administered on 02/02 11:05; Admin Dose 100 MLS/HR; Start 02/02/17 at 11:00 Sodium Chloride (NS) 1,000 ml @ 100 mls/hr Q10H IV Last administered on 22:48; Admin Dose 100 MLS/HR; Start 02/02/17 at 10:00 Ondansetron HCl (Zofran Inj) 4 mg Q6H PRN IV NAUSEA AND/OR VOMITING; Start at 10:00 Acetaminophen (Tylenol Tab) 650 mg Q6H PRN PO PAIN LEVEL 1-3 OR FEVER; Start at 10:00 Morphine Sulfate (morphine) 2 mg Q4H PRN IV PAIN; Start 02/02/17 at 10:00 AARON VEE Feb 03, 2017 10:14
[2017-02-03] MEDS: LEVOFLOXACIN 500MG/D5W (PMX) 100 ML IVPB SCH (11:31)
[2017-02-03 14:15] VITALS: BP 143/71; PULSE 96; RESP 16
[2017-02-03 14:29] LABS: MYELOPEROXIDASE ANTIBODY <1.0 AI; PROTEINASE-3 ANTIBODY <1.0 AI
[2017-02-03] MEDS ORDERED: PROPOFOL 40 ML ONE (14:30)
[2017-02-03] MEDS ORDERED: LIDOCAINE 2% (SDV) 5 ML INJ ONE (14:30)
--- NOTE | 2017-02-03 14:30 | OPR ---
Date/Time of Note Date/Time of Note DATE: 02/03/17 TIME: 14:25 Operative Report Free Text/Dictation Impression: 1. ulcerated IC valve 2. strictured entry into the ileum 3. mildly inflamed cecum 4. ascending colon polyp Recommendations: 1. start solumedrol and 6MP for presumed Crohn's disease 2. I sent off stool studies to r/o infectious causes 3. he declined EGD even though it is part of w/u for Crohn's disease to define extent and severity of his Crohn's disease. 4. f/u biopsy results Procedure Date: Feb 03, 2017 Preoperative Diagnosis elevated CRP, diarrhea Operation Performed colonoscopy with biopsies and polypectomy of ascending colon polyp Surgeon: EMIL MCADAMS MD Anesthesia: MAC Anesthesiologist: JAYA CAMACHO MD Estimated Blood Loss: minimal Specimens colon biopsies Complications: None Pt Condition Post Procedure: stable Disposition: PACU Indications chronic diarrhea with elevated inflammatory markers Operative\Procedure Findings 1. ascending colon polyp s/p polypectomy 2. IC valve stricture and ulceration 3. mild cecal inflammation 4. small internal hemorrhoids Procedure Description After time out and informed consent, patient was sedated by Dr. Camacho. After adequate sedation, I performed rectal exam that showed normal rectal tone, no perianal ulcer, erosions, fissures, or fistula. I next inserted an adult EGD scope from the rectum and advanced to the cecum. IC valve was edematous and ulcerated and I could not intubate the TI. I passed biopsy forcept to obtain random ileal biopsies. Cecum appeared erythematous but no jose ulcers. There is a 1.5 cm polyp in the ascending colon s/p polypectomy. Colon was evaluated circumferentially upon withdraw. Random biopsies were taken to r/o IBD and others such as dysplasia. Retroflexion was performed in the rectum revealing small internal hemorrhoids. EMIL MCADAMS MD Feb 03, 2017 14:30
[2017-02-03] MEDS ORDERED: PROPOFOL 20 ML ONE ×2 (14:53)
[2017-02-03] MEDS ORDERED: ONDANSETRON 4 MG INJ IV PRN (15:30)
[2017-02-03 16:01] VITALS: BP 111/64; PULSE 70; RESP 20
[2017-02-03] MEDS: METHYLPREDNISOLONE 40 MG INJ IV SCH ×2 (16:45→21:36)
[2017-02-03 17:00] VITALS: BP 143/71; RESP 22
[2017-02-03 20:36] VITALS: BP 123/66; RESP 20
[2017-02-03] MEDS: MERCAPTOPURINE 50 MG TAB PO SCH (20:55)
[2017-02-04] MEDS: SOD CHLORIDE 0.9% 1,000 ML IV SCH ×3 (02:13→21:47)
[2017-02-04] MEDS: PANTOPRAZOLE (EC) 40 MG TAB PO SCH (05:24)
[2017-02-04] MEDS: METHYLPREDNISOLONE 40 MG INJ IV SCH ×3 (05:24→21:46)
[2017-02-04] MEDS: metroNIDAZOLE 500 MG TAB PO SCH ×3 (05:24→21:47)
[2017-02-04 06:40] LABS: ADD SCAN DIFF NO
[2017-02-04 06:45] LABS: BASOPHILS % 0.1 % (0.0-2.0); HEMATOCRIT 39.2 % (42.0-52.0); HEMOGLOBIN 12.5 g/dl (14.0-18.0); LYMPHOCYTES # 0.8 10^3/ul (0.8-2.9); LYMPHOCYTES % 9.4 % (15.0-51.0); MEAN CORPUSCULAR HEMOGLOBIN 25.9 pg (29.0-33.0); MEAN CORPUSCULAR HGB CONC 31.9 g/dl (32.0-37.0); MEAN CORPUSCULAR VOLUME 81.3 fl (82.0-101.0); MEAN PLATELET VOLUME 8.6 fl (7.4-10.4); MONOCYTE # 0.2 10^3/ul (0.3-0.9); MONOCYTES % 1.9 % (0.0-11.0); NEUTROPHIL # 7.5 10^3/ul (1.6-7.5); NEUTROPHILS % 88.2 % (39.0-77.0); PLATELET COUNT 629 10^3/UL (140-415); RED BLOOD COUNT 4.82 10^6/ul (4.70-6.10); RED CELL DISTRIBUTION WIDTH 14.2 % (11.5-14.5); WHITE BLOOD COUNT 8.5 10^3/ul (4.8-10.8)
[2017-02-04 07:04] LABS: ALBUMIN 3.6 g/dl (3.3-4.9); MAGNESIUM 2.3 mg/dl (1.7-2.5); PHOSPHORUS 3.8 mg/dl (2.5-4.9)
[2017-02-04 07:05] LABS: POTASSIUM 4.4 mmol/L (3.5-5.1)
[2017-02-04 07:07] LABS: ALBUMIN/GLOBULIN RATIO 0.83; BILIRUBIN,INDIRECT 0.2 mg/dl (0-1.1); BILIRUBIN,TOTAL 0.2 mg/dl (0.2-1.3); CREATININE 0.51 mg/dl (0.61-1.24); TOTAL PROTEIN 7.9 g/dl (6.1-8.1)
[2017-02-04 07:08] LABS: CALCIUM 9.1 mg/dl (8.4-10.2)
[2017-02-04 07:20] VITALS: BP 132/75; RESP 20
[2017-02-04] MEDS: MERCAPTOPURINE 50 MG TAB PO SCH (09:17)
--- NOTE | 2017-02-04 10:26 | PN ---
Date/Time of Note Date/Time of Note DATE: 02/04/17 TIME: 10:25 Assessment/Plan VTE Prophylaxis VTE Prophylaxis Intervention: ambulation, SCD's Lines/Catheters IV [facility]ter Type (from [email or web address] Peripheral IV Urinary Cath still in place: No Assessment/Plan Assessment/Plan 26-year-old male with: 1. Abdominal pain and intermittent diarrhea for approximately 2 weeks. S/p Colonoscopy yesterday. CT scan of the abdomen suspicious for terminal ileitis. CRP up, ? Crohn's disease, ANCA panel, MPO, and PR3 al negative, stool c diff and cx negative so far, d/c abx by AM if Ok with GI Pathology pending. Hep A positive Dr. Garza/Dr Cadena following Prophylaxis: Protonix for GI ppx and SCDs for DVT ppx Disposition: Continue current Abx and IVF and f/u final GI recs. Subjective 24 Hr Interval Summary Free Text/Dictation Patient doing well, s/p colonoscopy yesterday No complaints, no abdo pain or diarrhea this AM On clears and well tolerated Also started on Solu Medrol and Mercaptopurine IV per GI Pathology pending Exam/Review of Systems Vital Signs Vitals Vital Signs Date Time Temp Pulse Resp B/P Pulse Ox O2 Delivery O2 Flow Rate FiO2 02/04/17 07:20 97.7 80 20 132/75 99 02/03/17 16:01 Room Air Intake and Output 02/03/17 02/03/17 02/04/17 15:00 23:00 07:00 Intake Total 500 ml 760 ml 1580 ml Balance 500 ml 760 ml 1580 ml Exam Constitutional: alert, obese, oriented, well developed Respiratory: clear to auscultation, normal air movement Cardiovascular: nl pulses, regular rate and rhythm Gastrointestinal: non-tender, soft Musculoskeletal: nl extremities to inspection Extremities: normal pulses, other (no edema, clubbing or cyanosis ) Neurological: PERSONAL LINES APPRAISER II-XII intact, nl mental status, nl speech, nl strength Results Result Diagram: 02/04/17 0629 02/04/17 0629 Results 24 hrs Laboratory Tests Test 02/03/17 21:30 02/04/17 06:29 Stool Occult Blood POSITIVE White Blood Count 8.5 Red Blood Count 4.82 Hemoglobin 12.5 L Hematocrit 39.2 L Mean Corpuscular Volume 81.3 L Mean Corpuscular Hemoglobin 25.9 L Mean Corpuscular Hemoglobin Concent 31.9 L Red Cell Distribution Width 14.2 Platelet Count 629 H Mean Platelet Volume 8.6 Neutrophils % 88.2 H Lymphocytes % 9.4 L Monocytes % 1.9 Eosinophils % 0.0 Basophils % 0.1 Nucleated Red Blood Cells % 0.0 Neutrophils # 7.5 Lymphocytes # 0.8 Monocytes # 0.2 L Eosinophils # 0.0 Basophils # 0.0 Nucleated Red Blood Cells # 0.0 Sodium Level 141 Potassium Level 4.4 Chloride Level 110 Carbon Dioxide Level 22 Anion Gap 13 Blood Urea Nitrogen 3 L Creatinine 0.51 L Glucose Level 137 # Calcium Level 9.1 Phosphorus Level 3.8 Magnesium Level 2.3 Total Bilirubin 0.2 Direct Bilirubin 0.00 Indirect Bilirubin 0.2 Aspartate Amino Transf (AST/SGOT) 18 Alanine Aminotransferase (ALT/SGPT) 25 Alkaline Phosphatase 79 Total Protein 7.9 Albumin 3.6 Globulin 4.30 H Albumin/Globulin Ratio 0.83 Medications Medications Current Medications Metronidazole (Flagyl) 500 mg Q8 PO Last administered on 02/04/17 05:24; Admin Dose 500 MG; Start 02/01/17 at 22:30 Pantoprazole 40 mg 40 mg DAILY@06 PO Last administered on 02/04/17 05:24; Admin Dose 40 MG; Start 02/02/17 at 06:00 Sodium Chloride (NS) 1,000 ml @ 100 mls/hr Q10H IV Last administered on 02:13; Admin Dose 100 MLS/HR; Start 02/02/17 at 10:00 Ondansetron HCl (Zofran Inj) 4 mg Q6H PRN IV NAUSEA AND/OR VOMITING; Start at 10:00 Acetaminophen (Tylenol Tab) 650 mg Q6H PRN PO PAIN LEVEL 1-3 OR FEVER; Start at 10:00 Morphine Sulfate (morphine) 2 mg Q4H PRN IV PAIN; Start 02/02/17 at 10:00 Methylprednisolone Sodium Succinate (Solu-Medrol) 20 mg Q8 IV Last administered on 02/04/17 05:24; Admin Dose 20 MG; Start 02/03/17 at 15:00 Mercaptopurine (Purinethol) 100 mg DAILY PO Last administered on 4/2/17at 09:17 ; Admin Dose 100 MG; Start 02/03/17 at 15:00 Levofloxacin (Levaquin) 500 mg DAILY@06 PO ; Start 02/04/17 at 09:30 AARON VEE Feb 04, 2017 10:26
--- NOTE | 2017-02-04 10:49 | PN ---
Date/Time of Note Date/Time of Note DATE: 02/04/17 TIME: 10:47 Assessment/Plan Lines/Catheters IV Catheter Type (from [facility]): Peripheral IV Toure in Place (from [facility]): No Assessment/Plan Assessment/Plan 26-year-old male with abdominal pain and diarrhea for the past month * Colonoscopy findings likely Crohn's disease * Patient started on steroids * Advance diet as tolerated * Continue management per GI * Will follow as needed Subjective 24 Hr Interval Summary Denies abdominal pain. Tolerating clear liquids. Afebrile. Exam/Review of Systems Vital Signs Vitals Vital Signs Date Time Temp Pulse Resp B/P Pulse Ox O2 Delivery O2 Flow Rate FiO2 02/04/17 07:20 97.7 80 20 132/75 99 02/03/17 16:01 Room Air Intake and Output 02/03/17 02/03/17 02/04/17 15:00 23:00 07:00 Intake Total 500 ml 760 ml 1580 ml Balance 500 ml 760 ml 1580 ml Exam Free Text/Dictation GENERAL: Awake, alert, oriented 3. No acute distress. CARDIOVASCULAR: S1S2, regular rate and rhythm. No murmurs appreciated. RESPIRATORY: Clear to auscultation bilaterally. ABDOMEN: Soft, bowel sounds present, nondistended, nontender to palpation at this time EXTREMITIES: Free range of motion 4. No cyanosis, edema, or clubbing. Results Result Diagram: 02/04/17 0629 02/04/17 0629 JOSHUA GOULD MD Feb 04, 2017 10:49
[2017-02-04] MEDS: LEVOFLOXACIN 500 MG TAB PO SCH (12:21)
--- NOTE | 2017-02-04 13:25 | CONS ---
Date/Time of Note Date/Time of Note DATE: 02/04/17 TIME: 13:20 Assessment/Plan Assessment/Plan Chief Complaint/Hosp Course Impression: 1. likely Crohn's disease, awaiting final biopsy results 2. on immunosuppression for Crohn's disease with mercaptopurine and solumedrol 3. anemia secondary to Crohn's disease Recommendations: 1. f/u biopsy results 2. check CBC and CMP tomorrow to make sure there is no bone marrow suppression and hepatoxicity with mercaptopurine 3. if ESR and CRP reduces tomorrow, ok from GI perspective to discharge patient on prednisone 40 mg po daily to taper by 10 mg per week until off and continued 6MP at 100 mg po daily 4. f/u in Dr. Garza's clinic for further out-pt managements Problems: Consultation Date/Type/Reason Admit Date/Time Feb 01, 2017 at 17:40 Initial Consult Date 02/01/17 Type of Consultation: Gastroenterology 24 HR Interval Summary Free Text/Dictation tolerating po, no n/v, abdominal pain improved Constitutional: improved Exam/Review of Systems Vital Signs Vitals Vital Signs Date Time Temp Pulse Resp B/P Pulse Ox O2 Delivery O2 Flow Rate FiO2 02/04/17 07:20 97.7 80 20 132/75 99 02/03/17 16:01 Room Air Intake and Output 02/03/17 02/03/17 02/04/17 15:00 23:00 07:00 Intake Total 500 ml 760 ml 1580 ml Balance 500 ml 760 ml 1580 ml Exam Constitutional: alert, oriented, well developed Psych: nl mood/affect, no complaints Head: atraumatic, normocephalic Eyes: EOMI, nl conjunctiva, nl lids, nl sclera ENMT: mucosa pink and moist, nl external ears & nose, nl lips & teeth, nl nasal mucosa & septum Neck: non-tender, supple Respiratory: clear to auscultation, normal air movement Cardiovascular: nl pulses, regular rate and rhythm Gastrointestinal: bowel sounds, non-tender, soft Results Result Diagram: 02/04/17 0629 02/04/17 0629 Results 24 hrs Laboratory Tests Test 02/03/17 21:30 02/04/17 06:29 Stool Occult Blood POSITIVE White Blood Count 8.5 Red Blood Count 4.82 Hemoglobin 12.5 L Hematocrit 39.2 L Mean Corpuscular Volume 81.3 L Mean Corpuscular Hemoglobin 25.9 L Mean Corpuscular Hemoglobin Concent 31.9 L Red Cell Distribution Width 14.2 Platelet Count 629 H Mean Platelet Volume 8.6 Neutrophils % 88.2 H Lymphocytes % 9.4 L Monocytes % 1.9 Eosinophils % 0.0 Basophils % 0.1 Nucleated Red Blood Cells % 0.0 Neutrophils # 7.5 Lymphocytes # 0.8 Monocytes # 0.2 L Eosinophils # 0.0 Basophils # 0.0 Nucleated Red Blood Cells # 0.0 Sodium Level 141 Potassium Level 4.4 Chloride Level 110 Carbon Dioxide Level 22 Anion Gap 13 Blood Urea Nitrogen 3 L Creatinine 0.51 L Glucose Level 137 # Calcium Level 9.1 Phosphorus Level 3.8 Magnesium Level 2.3 Total Bilirubin 0.2 Direct Bilirubin 0.00 Indirect Bilirubin 0.2 Aspartate Amino Transf (AST/SGOT) 18 Alanine Aminotransferase (ALT/SGPT) 25 Alkaline Phosphatase 79 Total Protein 7.9 Albumin 3.6 Globulin 4.30 H Albumin/Globulin Ratio 0.83 Medications Medications Current Medications Metronidazole (Flagyl) 500 mg Q8 PO Last administered on 02/04/17 05:24; Admin Dose 500 MG; Start 02/01/17 at 22:30 Pantoprazole 40 mg 40 mg DAILY@06 PO Last administered on 02/04/17 05:24; Admin Dose 40 MG; Start 02/02/17 at 06:00 Sodium Chloride (NS) 1,000 ml @ 100 mls/hr Q10H IV Last administered on 12:25; Admin Dose 100 MLS/HR; Start 02/02/17 at 10:00 Ondansetron HCl (Zofran Inj) 4 mg Q6H PRN IV NAUSEA AND/OR VOMITING; Start at 10:00 Acetaminophen (Tylenol Tab) 650 mg Q6H PRN PO PAIN LEVEL 1-3 OR FEVER; Start at 10:00 Morphine Sulfate (morphine) 2 mg Q4H PRN IV PAIN; Start 02/02/17 at 10:00 Methylprednisolone Sodium Succinate (Solu-Medrol) 20 mg Q8 IV Last administered on 02/04/17 05:24; Admin Dose 20 MG; Start 02/03/17 at 15:00 Mercaptopurine (Purinethol) 100 mg DAILY PO Last administered on 02/04/17 09:17 ; Admin Dose 100 MG; Start 02/03/17 at 15:00 Levofloxacin (Levaquin) 500 mg DAILY@06 PO Last administered on 02/04/17 12:21 ; Admin Dose 500 MG; Start 02/04/17 at 09:30 EMIL MCADAMS MD Feb 04, 2017 13:25
[2017-02-04 19:34] VITALS: BP 130/71; RESP 18
[2017-02-05] MEDS: SOD CHLORIDE 0.9% 1,000 ML IV SCH ×2 (02:46→08:00)
[2017-02-05] MEDS: metroNIDAZOLE 500 MG TAB PO SCH (05:41)
[2017-02-05] MEDS: PANTOPRAZOLE (EC) 40 MG TAB PO SCH (05:41)
[2017-02-05] MEDS: METHYLPREDNISOLONE 40 MG INJ IV SCH (05:41)
[2017-02-05] MEDS: LEVOFLOXACIN 500 MG TAB PO SCH (05:41)
[2017-02-05 06:08] LABS: ADD SCAN DIFF NO
[2017-02-05 06:19] LABS: ABNORMAL IP MESSAGE 1; HEMATOCRIT 38.4 % (42.0-52.0); MEAN CORPUSCULAR HEMOGLOBIN 25.8 pg (29.0-33.0); MEAN CORPUSCULAR HGB CONC 31.3 g/dl (32.0-37.0); MEAN CORPUSCULAR VOLUME 82.6 fl (82.0-101.0); MEAN PLATELET VOLUME 8.5 fl (7.4-10.4); PLATELET COUNT 663 10^3/UL (140-415); RED BLOOD COUNT 4.65 10^6/ul (4.70-6.10); RED CELL DISTRIBUTION WIDTH 14.2 % (11.5-14.5); WHITE BLOOD COUNT 22.5 10^3/ul (4.8-10.8)
[2017-02-05 06:26] LABS: ALBUMIN 3.4 g/dl (3.3-4.9)
[2017-02-05 06:29] LABS: ALBUMIN/GLOBULIN RATIO 0.87; BILIRUBIN,INDIRECT 0.2 mg/dl (0-1.1); BILIRUBIN,TOTAL 0.2 mg/dl (0.2-1.3); CREATININE 0.59 mg/dl (0.61-1.24); TOTAL PROTEIN 7.3 g/dl (6.1-8.1)
[2017-02-05 06:30] LABS: CALCIUM 8.6 mg/dl (8.4-10.2)
[2017-02-05 07:07] LABS: C-REACTIVE PROTEIN 1.9 mg/dl (0.0-0.9)
[2017-02-05 07:20] VITALS: BP 127/82; RESP 20
[2017-02-05] MEDS: MERCAPTOPURINE 50 MG TAB PO SCH (09:33)
[2017-02-05 09:38] LABS: LYMPHOCYTES # 0.7 10^3/ul (0.8-2.9); MONOCYTE # 0.9 10^3/ul (0.3-0.9); NEUTROPHIL # 20.9 10^3/ul (1.6-7.5)
[2017-02-05 09:39] LABS: PLATELET ESTIMATE PLT APPEAR INCREASED
--- NOTE | 2017-02-05 10:51 | CONS ---
Date/Time of Note Date/Time of Note DATE: 02/05/17 TIME: 10:49 Assessment/Plan Assessment/Plan Chief Complaint/Hosp Course Impression: 1. likely Crohn's disease, awaiting final biopsy results 2. on immunosuppression for Crohn's disease with mercaptopurine and solumedrol 3. anemia secondary to Crohn's disease Recommendations: 1. f/u biopsy results 2. continue mercaptopurine at 100 mg po daily as there is no e/o immunosuppression and hepatotoxicity on CBC and LFT 3. Ok from GI perspective to discharge patient on prednisone 40 mg po daily to taper by 5 mg per week until off and continued 6MP at 100 mg po daily 4. IV solumedrol changed to prednisone 40 mg po daily in anticipation of discharge. 5. f/u in Dr. Garza's clinic for further out-pt managements Problems: Consultation Date/Type/Reason Admit Date/Time Feb 01, 2017 at 17:40 Initial Consult Date 02/01/17 Type of Consultation: Gastroenterology 24 HR Interval Summary Free Text/Dictation No abdominal pain, no n/v, no blood in stool. Diarrhea improved. Exam/Review of Systems Vital Signs Vitals Vital Signs Date Time Temp Pulse Resp B/P Pulse Ox O2 Delivery O2 Flow Rate FiO2 02/05/17 07:20 97.8 71 20 127/82 99 02/03/17 16:01 Room Air Intake and Output 02/04/17 02/04/17 02/05/17 15:00 23:00 07:00 Intake Total 720 ml 2140 ml 900 ml Balance 720 ml 2140 ml 900 ml Exam Constitutional: alert, oriented, well developed Psych: nl mood/affect, no complaints Head: atraumatic, normocephalic Eyes: EOMI, nl conjunctiva, nl lids, nl sclera ENMT: mucosa pink and moist, nl external ears & nose, nl lips & teeth, nl nasal mucosa & septum Neck: non-tender, supple Respiratory: clear to auscultation, normal air movement Cardiovascular: nl pulses, regular rate and rhythm Gastrointestinal: bowel sounds, non-tender, soft Results Result Diagram: 02/05/17 0440 02/05/17 0440 Results 24 hrs Laboratory Tests Test 02/05/17 04:40 02/05/17 05:40 02/05/17 09:04 White Blood Count 22.5 #H Red Blood Count 4.65 L Hemoglobin 12.0 L Hematocrit 38.4 L Mean Corpuscular Volume 82.6 Mean Corpuscular Hemoglobin 25.8 L Mean Corpuscular Hemoglobin Concent 31.3 L Red Cell Distribution Width 14.2 Platelet Count 663 H Mean Platelet Volume 8.5 Neutrophils % 93.0 H Lymphocytes % 3.0 L Monocytes % 4.0 Neutrophils # 20.9 H Lymphocytes # 0.7 L Monocytes # 0.9 Platelet Estimate PLT APPEAR INCREASED Sodium Level 140 Potassium Level 4.0 Chloride Level 108 Carbon Dioxide Level 25 Anion Gap 11 Blood Urea Nitrogen 7 Creatinine 0.59 L Glucose Level 137 Calcium Level 8.6 Total Bilirubin 0.2 Direct Bilirubin 0.00 Indirect Bilirubin 0.2 Aspartate Amino Transf (AST/SGOT) 14 L Alanine Aminotransferase (ALT/SGPT) 20 Alkaline Phosphatase 72 C-Reactive Protein 1.9 H Total Protein 7.3 Albumin 3.4 Globulin 3.90 H Albumin/Globulin Ratio 0.87 Erythrocyte Sedimentation Rate 42.0 H Lab Scanned Report REFERENCE LAB Medications Medications Current Medications Metronidazole (Flagyl) 500 mg Q8 PO Last administered on 02/05/17 05:41; Admin Dose 500 MG; Start 02/01/17 at 22:30 Pantoprazole 40 mg 40 mg DAILY@06 PO Last administered on 02/05/17 05:41; Admin Dose 40 MG; Start 02/02/17 at 06:00 Sodium Chloride (NS) 1,000 ml @ 100 mls/hr Q10H IV Last administered on 02:46; Admin Dose 100 MLS/HR; Start 02/02/17 at 10:00 Ondansetron HCl (Zofran Inj) 4 mg Q6H PRN IV NAUSEA AND/OR VOMITING; Start at 10:00 Acetaminophen (Tylenol Tab) 650 mg Q6H PRN PO PAIN LEVEL 1-3 OR FEVER; Start at 10:00 Morphine Sulfate (morphine) 2 mg Q4H PRN IV PAIN; Start 02/02/17 at 10:00 Methylprednisolone Sodium Succinate (Solu-Medrol) 20 mg Q8 IV Last administered on 02/05/17 05:41; Admin Dose 20 MG; Start 02/03/17 at 15:00 Mercaptopurine (Purinethol) 100 mg DAILY PO Last administered on 02/05/17 09:33 ; Admin Dose 100 MG; Start 02/03/17 at 15:00 Levofloxacin (Levaquin) 500 mg DAILY@06 PO Last administered on 02/05/17 05:41 ; Admin Dose 500 MG; Start 02/04/17 at 09:30 EMIL MCADAMS MD Feb 05, 2017 10:51
[2017-02-05] MEDS ORDERED: predniSONE 20 MG TAB PO ONE (11:00)
--- NOTE | 2017-02-05 11:17 | PN ---
Date/Time of Note Date/Time of Note DATE: 02/05/17 TIME: 11:17 Assessment/Plan VTE Prophylaxis VTE Prophylaxis Intervention: SCD's Lines/Catheters IV Catheter Type (from [facility]): Peripheral IV Urinary Cath still in place: No Assessment/Plan Assessment/Plan 26-year-old male with: 1. Abdominal pain and intermittent diarrhea for approximately 2 weeks. S/p Colonoscopy Sunday with findings still suspicious for Crohn's disease . CT scan of the abdomen suspicious for terminal ileitis. CRP trending down, ? Crohn's disease, ANCA panel, MPO, and PR3 al negative, stool c diff and cx negative so far, Hep A positive D/c ABx Appreciate final recs from Dr Cadena, d/c Home on 6MP and prednisone taper with outpatient follow up with Dr Garza Pathology pending. Prophylaxis: Protonix for GI ppx and SCDs for DVT ppx Disposition: D/c home today. Subjective 24 Hr Interval Summary Free Text/Dictation Patient doing well today and appreciate recommendations form Dr Cadena D/c home today with treatment for Crohn's disease Exam/Review of Systems Vital Signs Vitals Vital Signs Date Time Temp Pulse Resp B/P Pulse Ox O2 Delivery O2 Flow Rate FiO2 02/05/17 07:20 97.8 71 20 127/82 99 02/03/17 16:01 Room Air Intake and Output 02/04/17 02/04/17 02/05/17 15:00 23:00 07:00 Intake Total 720 ml 2140 ml 900 ml Balance 720 ml 2140 ml 900 ml Exam Constitutional: alert, obese, oriented, well developed Respiratory: clear to auscultation, normal air movement Cardiovascular: nl pulses, regular rate and rhythm Gastrointestinal: nl liver, spleen, non-tender, soft Musculoskeletal: nl extremities to inspection Extremities: normal pulses Neurological: 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 intact, nl mental status, nl speech, nl strength Results Result Diagram: 02/05/170 02/05/17 044 Results 24 hrs Laboratory Tests Test 02/05/17 04:40 02/05/17 05:40 02/05/17 09:04 White Blood Count 22.5 #H Red Blood Count 4.65 L Hemoglobin 12.0 L Hematocrit 38.4 L Mean Corpuscular Volume 82.6 Mean Corpuscular Hemoglobin 25.8 L Mean Corpuscular Hemoglobin Concent 31.3 L Red Cell Distribution Width 14.2 Platelet Count 663 H Mean Platelet Volume 8.5 Neutrophils % 93.0 H Lymphocytes % 3.0 L Monocytes % 4.0 Neutrophils # 20.9 H Lymphocytes # 0.7 L Monocytes # 0.9 Platelet Estimate PLT APPEAR INCREASED Sodium Level 140 Potassium Level 4.0 Chloride Level 108 Carbon Dioxide Level 25 Anion Gap 11 Blood Urea Nitrogen 7 Creatinine 0.59 L Glucose Level 137 Calcium Level 8.6 Total Bilirubin 0.2 Direct Bilirubin 0.00 Indirect Bilirubin 0.2 Aspartate Amino Transf (AST/SGOT) 14 L Alanine Aminotransferase (ALT/SGPT) 20 Alkaline Phosphatase 72 C-Reactive Protein 1.9 H Total Protein 7.3 Albumin 3.4 Globulin 3.90 H Albumin/Globulin Ratio 0.87 Erythrocyte Sedimentation Rate 42.0 H Lab Scanned Report REFERENCE LAB Medications Medications Current Medications Metronidazole (Flagyl) 500 mg Q8 PO Last administered on 02/05/17 05:41; Admin Dose 500 MG; Start 02/01/17 at 22:30 Pantoprazole 40 mg 40 mg DAILY@06 PO Last administered on 02/05/17 05:41; Admin Dose 40 MG; Start 02/02/17 at 06:00 Sodium Chloride (NS) 1,000 ml @ 100 mls/hr Q10H IV Last administered on 02:46; Admin Dose 100 MLS/HR; Start 02/02/17 at 10:00 Ondansetron HCl (Zofran Inj) 4 mg Q6H PRN IV NAUSEA AND/OR VOMITING; Start at 10:00 Acetaminophen (Tylenol Tab) 650 mg Q6H PRN PO PAIN LEVEL 1-3 OR FEVER; Start at 10:00 Morphine Sulfate (morphine) 2 mg Q4H PRN IV PAIN; Start 02/02/17 at 10:00 Mercaptopurine (Purinethol) 100 mg DAILY PO Last administered on 02/05/17 09:33 ; Admin Dose 100 MG; Start 02/03/17 at 15:00 Levofloxacin (Levaquin) 500 mg DAILY@06 PO Last administered on 02/05/17 05:41 ; Admin Dose 500 MG; Start 02/04/17 at 09:30 AARON VEE Feb 05, 2017 11:17
--- NOTE | 2017-02-05 11:28 | PDOCDIS ---
Discharge Instructions CONDITION Patient Condition: Good HOME CARE INSTRUCTIONS: Special Diet: Low residue diet ACTIVITY: Activity Restrictions: No Restrictions FOLLOW UP/APPOINTMENTS Appointments Follow up with PCP within 1 week Follow up with Dr Garza within 1 to 2 weeks SCHOOL/WORK RELEASE May return to School/Work on: Feb 12, 2017 May return to School/Work with: No Restrictions AARON VEE Feb 05, 2017 11:28
[2017-02-05] MEDS ORDERED: Mercaptopurine PO (11:36)
[2017-02-05] MEDS ORDERED: PRED20TA PO (11:36)
[2017-02-05] MEDS ORDERED: PANT40TA4 PO (11:36)
== END 2017-02-05 16:10 | disposition home or self-care (01) | DRG 387 ==
LOC: FTE 13:15 → MS2 17:40
PROVIDERS: ADMIT Internal Medicine; ATTEND Internal Medicine
PROC: 0DBB8ZX Excision of Ileum, Via Natural or Artificial Opening Endoscopic, Diagnostic (ICD-10-PCS; 2017-02-03)
PROC: 0DBE8ZX Excision of Large Intestine, Via Natural or Artificial Opening Endoscopic, Diagnostic (ICD-10-PCS; 2017-02-03)
PROC: 0DBK8ZZ Excision of Ascending Colon, Via Natural or Artificial Opening Endoscopic (ICD-10-PCS; principal; 2017-02-03 14:00)
DX: K50.90 Crohn's disease, unspecified, without complications (principal); D63.8 Anemia in other chronic diseases classified elsewhere; D12.2 Benign neoplasm of ascending colon; J45.909 Unspecified asthma, uncomplicated; E66.9 Obesity, unspecified; Z68.35 Body mass index [BMI] 35.0-35.9, adult
CPT/HCPCS: 36415; 74176; 80048; 80053; 80061; 80076; 82270; 83690; 83735; 84100; 85025; 85610; 85651; 85730; 86021; 86140; 86674; 86708; 86709; 87045; 87075; 87205; 88305; 96374; J1956; J2270; J2405; J2543; J2920; J7030; J7512

== ENCOUNTER 2017-04-17 17:50 | Emergency (ER) | payer OTHER ==
[~2017-04-17] VITALS: Ht 190.5 cm; Wt 150.0 kg
[~2017-04-17 17:50] MED LIST: ALBU18HF INHALATION; Mercaptopurine PO; PANT40TA4 PO; PRED20TA PO
[2017-04-17 17:59] VITALS: Ht 190.5 cm; Wt 150.0 kg
[2017-04-17] MEDS ORDERED: ACETAMINOPHEN 325 MG TAB PO ONE (18:30)
[2017-04-17] MEDS ORDERED: IBUPROFEN 600 MG TAB PO ONE (18:30)
[2017-04-17] MEDS ORDERED: IBUP-1542 PO (19:43)
[2017-04-17] MEDS ORDERED: D-ME473S18 PO (19:43)
--- NOTE | 2017-04-17 19:47 | ERD ---
ER Documentation Chief Complaint Date/Time DATE: 04/17/17 TIME: 19:46 Chief Complaint FEVER,COUGH,RUNNY NOSE, BODY ACHES HPI This 26-year-old male presents with fever and cough for the last 2 days. There is no history of vomiting, abdominal pain, diarrhea, neck stiffness, rashes ROS All systems reviewed and are negative except as per history of present illness. Medications Home Meds Active Scripts Dextromethorphan Hb-Promethazine Hcl (Promethazine DM Syrup) 473 Ml Syrup, 5 ML PO Q6H Y for COUGH, #4 OZ Prov:INDIA SPAULDING MD 04/17/17 Ibuprofen* (Motrin*) 600 Mg Tab, 600 MG PO Q6, #20 TAB Prov:INDIA SPAULDING MD 04/17/17 Prednisone* (Prednisone*) 20 Mg Tab, 40 MG PO DAILY for 60 Days, TAB see taper Prov:AARON VEE 02/05/17 Pantoprazole* (Pantoprazole*) 40 Mg Tablet.dr, 40 MG PO DAILY@06 for 30 Days Prov:AARON VEE 02/05/17 [Mercaptopurine] 50 MG TAB No Conflict Check, 100 MG PO DAILY for 30 Days, 3 Refills Prov:AARON VEE 02/05/17 Reported Medications Albuterol Sulfate* (Ventolin HFA*) 18 Gm Hfa.aer.ad, 2 PUFF INHALATION Q4H, #1 INHALER 02/01/17 Allergies Allergies: Coded Allergies: No Known Allergy (Unverified , 02/01/17) PMhx/Soc History of Surgery: No Anesthesia Reaction: No Hx Neurological Disorder: No Hx Respiratory Disorders: Yes (ASTHMA) Hx Cardiac Disorders: No Hx Psychiatric Problems: No Hx Miscellaneous Medical Probl: No Hx Alcohol Use: No Hx Substance Use: No Hx Tobacco Use: No Smoking Status: Never smoker Physical Exam Vitals Vital Signs Date Time Temp Pulse Resp B/P Pulse Ox O2 Delivery O2 Flow Rate FiO2 04/17/17 17:59 101.2 118 20 130/78 98 Physical Exam Const: [] Alert, [id number]. Head: Atraumatic Eyes: Normal Conjunctiva ENT: Normal External Ears, Nose and Mouth. TMs and oropharynx normal Neck: Full range of motion..~ No meningismus. Resp: Clear to auscultation bilaterally Cardio: Regular rate and rhythm, no murmurs Abd: Soft, non tender, non distended. Normal bowel sounds Skin: No petechiae or rashes Back: No midline or flank tenderness Ext: No cyanosis, or edema Neur: Awake and alert Psych: Normal Mood and Affect Results 24 hrs Current Medications Medications (Trade) Dose Ordered Sig/Marcello Route PRN Reason Start Time Stop Time Status Last Admin Dose Admin Ibuprofen (Motrin) 600 mg ONCE ONCE PO 04/17/17 18:30 04/17/17 18:31 DC 04/17/17 18:41 Acetaminophen (Tylenol Tab) 650 mg ONCE ONCE PO 04/17/17 18:30 04/17/17 18:31 DC 04/17/17 18:41 Procedures/MDM Patient presents with febrile illness and URI symptoms without hypoxemia or respiratory distress.. Tylenol and ibuprofen for fever. Chest X-ray 1V Interpreted by me: Soft Tissue: No acute abnormalities Bones: No acute abnormalities Mediastinum/Cardiac Silhouette/Lungs: [No acute abnormalities]. Impression have normal 1 view chest x-ray Patient was treated with promethazine and ibuprofen. Likely has viral URI. The patient was stable with no new complaints during the ER course. Clinically, there is no current evidence to suggest meningitis, sepsis, acute abdomen, pneumonia, acute coronary syndrome, pulmonary embolism, or any other emergent condition appearing to require further evaluation or hospitalization. The patient should certainly return for any new or worsening symptoms per the aftercare instructions. They should otherwise follow-up with her primary care doctor for reevaluation this week. Departure Diagnosis: Primary Impression: Upper respiratory infection URI type: unspecified URI Qualified Code: J06.9 - Upper respiratory tract infection, unspecified type Condition: Stable Patient Instructions: Fever Control (Adult), Uri, Viral, No Abx (Adult) Additional Instructions: X-ray appears normal. Recheck for new or worsening symptoms with primary care doctor. Likely viral illness may last 3-5 days. INDIA SPAULDING MD Apr 17, 2017 19:47
--- NOTE | 2017-04-17 19:50 | RADRPT ---
PROCEDURE: Portable chest x-ray. CLINICAL INDICATION: Chest pain. TECHNIQUE: Portable AP view of the chest. COMPARISON: None. FINDINGS: No pulmonary edema or conolidation is identified. The cardiac silhouette is magnified. No pleural effusion is seen. There is no pneumothorax. IMPRESSION: 1. No evidence of acute cardiopulmonary disease. RPTAT: HTAR .Marcellus Tang MD, MD Date Time Electronically viewed and signed by .Marcellus Tang MD, on 04/17/2017 19:49 .R/
[2017-04-17 20:39] VITALS: BP 117/64; PULSE 92; RESP 20; TEMP 99.6
== END 2017-04-17 20:40 | disposition home or self-care (01) ==
LOC: FTE 17:50
DX: J06.9 Acute upper respiratory infection, unspecified (principal); J45.909 Unspecified asthma, uncomplicated
CPT/HCPCS: 71010; Z7502; Z7610

== ENCOUNTER 2017-09-19 18:24 | Emergency (ER) | payer OTHER ==
[~2017-09-19] VITALS: Ht 190.5 cm; Wt 150.0 kg
[~2017-09-19 18:24] MED LIST changes: +D-ME473S18 PO; +IBUP-1542 PO
[2017-09-19 18:31] VITALS: Ht 190.5 cm; Wt 150.0 kg
[2017-09-19 20:53] LABS: BASOPHIL # 0.1 10^3/ul (0.0-0.1); BASOPHILS % 0.6 % (0.0-2.0); EOSINOPHILS # 0.2 10^3/ul (0.0-0.5); EOSINOPHILS % 1.9 % (0.0-7.0); HEMATOCRIT 38.1 % (42.0-52.0); HEMOGLOBIN 12.3 g/dl (14.0-18.0); LYMPHOCYTES # 2.5 10^3/ul (0.8-2.9); LYMPHOCYTES % 27.3 % (15.0-51.0); MEAN CORPUSCULAR HEMOGLOBIN 29.3 pg (29.0-33.0); MEAN CORPUSCULAR HGB CONC 32.3 g/dl (32.0-37.0); MEAN CORPUSCULAR VOLUME 90.7 fl (82.0-101.0); MEAN PLATELET VOLUME 8.5 fl (7.4-10.4); MONOCYTE # 0.7 10^3/ul (0.3-0.9); MONOCYTES % 8.2 % (0.0-11.0); NEUTROPHIL # 5.6 10^3/ul (1.6-7.5); NEUTROPHILS % 61.6 % (39.0-77.0); PLATELET COUNT 408 10^3/UL (140-415); RED CELL DISTRIBUTION WIDTH 12.9 % (11.5-14.5)
[2017-09-19 20:59] LABS: ADD UMIC YES; UR ASCORBIC ACID NEGATIVE (NEGATIVE); UR BACTERIA FEW /HPF (NONE SEEN); UR BILIRUBIN (Dip) NEGATIVE (NEGATIVE); UR BLOOD (Dip) 1+ mg/dL (NEGATIVE); UR CLARITY CLEAR (CLEAR); UR COLOR YELLOW (YELLOW); UR GLUCOSE (Dip) NEGATIVE (NEGATIVE); UR KETONES (Dip) NEGATIVE (NEGATIVE); UR LEUKOCYTE ESTERASE (Dip) NEGATIVE Leu/ul (NEGATIVE); UR MUCUS FEW /HPF (NONE SEEN); UR NITRITE (Dip) NEGATIVE (NEGATIVE); UR RBC 3 /HPF (0-5); UR SPECIFIC GRAVITY (Dip) 1.027 (1.003-1.030); UR TOTAL PROTEIN (Dip) NEGATIVE (NEGATIVE); UR UROBILINOGEN (Dip) NEGATIVE (NEGATIVE)
--- NOTE | 2017-09-19 21:12 | ERD ---
ER Documentation Chief Complaint Chief Complaint Blood in the stool yestarday, none today, no injuries noted HPI 27-year-old male presenting with a chief complaints of bloody diarrhea 2 days ago. ROS All systems reviewed and are negative except as per history of present illness. Medications Home Meds Active Scripts Dextromethorphan Hb-Promethazine Hcl (Promethazine DM Syrup) 473 Ml Syrup, 5 ML PO Q6H Y for COUGH, #4 OZ Prov:INDIA SPAULDING MD 04/17/17 Ibuprofen* (Motrin*) 600 Mg Tab, 600 MG PO Q6, #20 TAB Prov:INDIA SPAULDING MD 04/17/17 Prednisone* (Prednisone*) 20 Mg Tab, 40 MG PO DAILY for 60 Days, TAB see taper Prov:AARON VEE 02/05/17 Pantoprazole* (Pantoprazole*) 40 Mg Tablet.dr, 40 MG PO DAILY@06 for 30 Days Prov:AARON VEE 02/05/17 [Mercaptopurine] 50 MG TAB No Conflict Check, 100 MG PO DAILY for 30 Days, 3 Refills Prov:AARON VEE 02/05/17 Reported Medications Albuterol Sulfate* (Ventolin HFA*) 18 Gm Hfa.aer.ad, 2 PUFF INHALATION Q4H, #1 INHALER 02/01/17 Allergies Allergies: Coded Allergies: No Known Allergy (Unverified , 02/01/17) PMhx/Soc Medical and Surgical Hx: pt denies Surgical Hx History of Surgery: No Anesthesia Reaction: No Hx Neurological Disorder: No Hx Respiratory Disorders: Yes (ASTHMA) Hx Cardiac Disorders: No Hx Psychiatric Problems: No Hx Miscellaneous Medical Probl: No Hx Alcohol Use: No Hx Substance Use: No Hx Tobacco Use: No Smoking Status: Never smoker Physical Exam Vitals Vital Signs Date Time Temp Pulse Resp B/P Pulse Ox O2 Delivery O2 Flow Rate FiO2 09/19/17 18:31 99.0 91 20 140/79 97 Physical Exam Const: Overweight well-appearing 27-year-old male in NAD Head: Atraumatic Eyes: Normal Conjunctiva ENT: Normal External Ears, Nose and Mouth. Neck: Full range of motion..~ No meningismus. Resp: Clear to auscultation bilaterally Cardio: Regular rate and rhythm, no murmurs Abd: Soft, non tender, non distended. Normal bowel sounds Skin: No petechiae or rashes Back: No midline or flank tenderness Ext: No cyanosis, or edema Neur: Awake and alert Psych: Normal Mood and Affect Result Diagram: 09/19/17202909/19/172029 Results 24 hrs Laboratory Tests Test 09/19/17 20:15 09/19/17 20:17 09/19/17 20:30 Stool Occult Blood NEGATIVE Urine Color YELLOW Urine Clarity CLEAR Urine pH 5.0 Urine Specific [place] 1.027 Urine Ketones NEGATIVEmg/dL Urine Nitrite NEGATIVEmg/dL Urine Bilirubin NEGATIVEmg/dL Urine Urobilinogen NEGATIVEmg/dL Urine Leukocyte Esterase NEGATIVELeu/ul Urine Microscopic RBC 3/HPF Urine Microscopic WBC 2/HPF Urine Bacteria FEW/HPF Urine Mucus FEW/HPF Urine Hemoglobin 1+mg/dL Urine Glucose NEGATIVEmg/dL Urine Total Protein NEGATIVEmg/dl White Blood Count 9.010^3/ul Red Blood Count 4.2010^6/ul Hemoglobin 12.3g/dl Hematocrit 38.1% Mean Corpuscular Volume 90.7fl Mean Corpuscular Hemoglobin 29.3pg Mean Corpuscular Hemoglobin Concent 32.3g/dl Red Cell Distribution Width 12.9% Platelet Count 05498^3/UL Mean Platelet Volume 8.5fl Neutrophils % 61.6% Lymphocytes % 27.3% Monocytes % 8.2% Eosinophils % 1.9% Basophils % 0.6% Nucleated Red Blood Cells % 0.0/100WBC Neutrophils # 5.610^3/ul Lymphocytes # 2.510^3/ul Monocytes # 0.710^3/ul Eosinophils # 0.210^3/ul Basophils # 0.110^3/ul Nucleated Red Blood Cells # 0.010^3/ul Prothrombin Time 13.4Sec Prothrombin Time Ratio 1.0 INR International Normalized Ratio 1.02 Activated Partial Thromboplast Time 30.3Sec Sodium Level 143mmol/L Potassium Level 4.5mmol/L Chloride Level 106mmol/L Carbon Dioxide Level 29mmol/L Anion Gap 13 Blood Urea Nitrogen 13mg/dl Creatinine 0.91mg/dl Glucose Level 98mg/dl Calcium Level 9.3mg/dl Total Bilirubin 0.1mg/dl Direct Bilirubin 0.00mg/dl Indirect Bilirubin 0.1mg/dl Aspartate Amino Transf (AST/SGOT) 15IU/L Alanine Aminotransferase (ALT/SGPT) 16IU/L Alkaline Phosphatase 87IU/L Total Protein 8.0g/dl Albumin 4.1g/dl Globulin 3.90g/dl Albumin/Globulin Ratio 1.05 Lipase 79U/L Procedures/MDM 27-year-old male presents with a chief complaints of blood in his diarrhea. Physical exam unremarkable. CBC showed mild anemia with hemoglobin at 10. Patient has no signs or symptoms of anemia including dizziness and fatigue. Alcohol blood in stool was negative. Urinalysis showed few white blood cells. No signs or symptoms of urinary tract infection. Most likely diagnosis is diarrhea of unknown etiology. I have little suspicion for diverticulitis, infectious invasive diarrhea, or other acute abdomen. No antibiotics indicated at this time. I have spoke with the patient regarding their condition and future management. They have verbally responded that they understand their status and treatment plan. The patients vitals are stable, and their current condition is appropriate for discharge. The patient will be given discharge instructions with return precautions. Departure Diagnosis: Primary Impression: Diarrhea Diarrhea type: unspecified type Qualified Code: R19.7 - Diarrhea, unspecified type Condition: Stable Additional Instructions: Follow up with your PCP within the next 1-3 days for a more thorough evaluation and a possible referral to a specialist. Return the the emergency department immediately if symptoms worsen or change. If you have any questions regarding medications, ask your pharmacist or us before you leave. If any adverse reactions occur while taking your medications, discontinue the treatment and return to the emergency department immediately. Take your medications as directed, and complete the entire course of treatment. JOSHUA CORBTET PA-C Sep 19, 2017 21:12
[2017-09-19 21:18] LABS: INR 1.02; PARTIAL THROMBOPLASTIN TIME 30.3 Sec (25.0-35.0); PROTIME 13.4 Sec (12.2-14.2)
[2017-09-19 21:22] LABS: ALBUMIN 4.1 g/dl (3.3-4.9); ALBUMIN/GLOBULIN RATIO 1.05; BILIRUBIN,INDIRECT 0.1 mg/dl (0-1.1); BILIRUBIN,TOTAL 0.1 mg/dl (0.2-1.3); CALCIUM 9.3 mg/dl (8.4-10.2); CREATININE 0.91 mg/dl (0.61-1.24); POTASSIUM 4.5 mmol/L (3.5-5.1)
== END 2017-09-19 23:39 | disposition home or self-care (01) ==
LOC: FTE 18:24
DX: R19.7 Diarrhea, unspecified (principal); J45.909 Unspecified asthma, uncomplicated; R10.9 Unspecified abdominal pain
CPT/HCPCS: 80053; 81001; 82270; 83690; 85025; 85610; 85730; Z7502; 99283